=== PATIENT | female | born 1945 | race Caucasian/White ===

== ENCOUNTER 2017-02-01 08:40 | Day surgery (SDC) | payer OTHER, MEDICARE ==
[2017-01-30 09:37] VITALS: BMI 19.1
[2017-02-01] MEDS ORDERED: PROPOFOL 20 ML ONE ×2 (09:25)
[2017-02-01 12:30] VITALS: BP 80/50; PULSE 62; TEMP 98.4
== END 2017-02-01 11:25 | disposition home or self-care (01) ==
LOC: FASU-ENDO 08:40
PROVIDERS: ATTEND Internal Medicine Gastroenterology
PROC: 0DJD8ZZ Inspection of Lower Intestinal Tract, Via Natural or Artificial Opening Endoscopic (ICD-10-PCS; principal; 2017-02-01 09:42)
DX: Z12.11 Encounter for screening for malignant neoplasm of colon (principal); K57.30 Diverticulosis of large intestine without perforation or abscess without bleeding